=== PATIENT | female | born 1960 | race Caucasian/White ===

== ENCOUNTER 2019-10-19 09:31 | Day surgery (SDC) | payer OTHER ==
[2019-10-18 09:34] VITALS: BMI 30.5
[2019-10-19] MEDS ORDERED: SODIUM CHLORIDE 0.9% P/F 10 ML VIAL IJ ONE (10:22)
[2019-10-19] MEDS ORDERED: ceFAZolin SODIUM 1 GM VIAL ONE (10:22)
[2019-10-19] MEDS ORDERED: PROPOFOL 20 ML ONE ×2 (10:22→13:30)
[2019-10-19] MEDS ORDERED: MIDAZOLAM HCL 2 MG/2 ML SINGLE DOSE VIAL ONE (10:22)
[2019-10-19] MEDS ORDERED: DEXAMETHASONE SOD PHOSPHATE 4 MG/1 ML VIAL ONE (10:22)
[2019-10-19] MEDS ORDERED: oxyCODONE HCL 5 MG TABLET PO PRN ×2 (11:16)
[2019-10-19] MEDS ORDERED: ONDANSETRON 4 MG/2 ML VIAL IVPUSH PRN (11:16)
[2019-10-19] MEDS ORDERED: LACTATED RINGERS SOLUTION 1,000 ML IV SCH (11:30)
[2019-10-19] MEDS ORDERED: ceFAZolin SODIUM 1 GM VIAL IVPB ONE (13:32)
[2019-10-19] MEDS ORDERED: IOHEXOL 300 MG/ML INFUS..BTL IJ ONE (13:36)
[2019-10-19 14:20] LABS: PH,URINE 6.5 (5.0-8.0); URINE APPEARANCE CLEAR; URINE BILIRUBIN NEGATIVE (NEGATIVE); URINE COLOR YELLOW; URINE GLUCOSE (UA) NEGATIVE (NEGATIVE); URINE KETONE NEGATIVE (NEGATIVE); URINE LEUK ESTERASE NEGATIVE (NEGATIVE); URINE NITRITE NEGATIVE (NEGATIVE); URINE PROTEIN NEGATIVE (NEGATIVE); URINE UROBILINOGEN 0.2 mg/dL (0.2-1.0)
--- NOTE | 2019-10-19 14:21 | CONS ---
DATE OF CONSULTATION: DATE OF DICTATION: 10/19/2019 HISTORY OF PRESENT ILLNESS: Patient is a 59-year-old female with a history of transitional cell tumors of the bladder. She was last seen in 2018 and lost to followup. She underwent a CAT scan of her abdomen and was found to have right hydroureteronephrosis with no point of obstruction. She denies any diabetes or hypertension. She denies any allergies. The patient is . BUN was 16 and creatinine was 0.8. A urinalysis was positive for blood. PLAN: Therefore, the patient will be admitted for cystoscopy, right retrograde pyelogram, right ureteroscopy and placement of a right JJ stent. This was explained to patient and she agrees. Hali [id number]
[2019-10-19 16:51] VITALS: BP 129/60; PULSE 60; TEMP 97.3
--- NOTE | 2019-10-19 23:39 | OP ---
DATE OF OPERATION: 10/19/2019 PREOPERATIVE DIAGNOSIS: History of bladder tumor, right renal colic, right hydronephrosis, hematuria. POSTOPERATIVE DIAGNOSIS: Right ureteral stricture, no tumors seen. OPERATIVE PROCEDURE: Cystourethroscopy, collection of urine for culture and sensitivity and cytology, right retrograde pyelogram, right ureteral dilation and placement of a right JJ stent. ANESTHESIA: General. DESCRIPTION OF PROCEDURE: Under above stated anesthesia, patient was prepped and draped in the usual sterile manner. She was placed in the dorsal lithotomy position. Meatus appeared to be dry, therefore this was dilated with sounds to 28 Israeli without difficulty or bleeding. Bladder was entered. Urine was collected for cytology and culture and sensitivity. The bladder revealed generalized grade 2 trabeculation. No lesions were noted. No calculi were seen. There was squamous metaplasia of the trigone. Ureteral orifice revealed clear efflux of urine. A Flexi-Tip catheter was placed into the right ureteral orifice and 10 mL of contrast was injected. This revealed a hydronephrotic kidney with a thinning of the mid ureter indicative of a stricture . Delayed films revealed delayed drainage of the proximal renal unit. A glidewire was passed up the right renal unit. The cystoscope was removed. The ureteroscope was inserted. Ureteroscopy revealed a stricture in the mid portion of the ureter. A ureteral balloon was inserted, and this was dilated to 12 Israeli, and was kept in for 15 minutes. Afterwards the lumen appeared to be larger. Therefore, a 22-cm, 6-Israeli JJ stent was placed. X-rays confirmed good position of the stents. The patient tolerated the procedure. She returned to the recovery room in good condition. Hali [id number]
--- NOTE | 2019-10-22 16:57 | PATH ---
Cytology Non-Gynecological Report Patient Name: BETTY GONZALES [facility]. Rec. #: [id number] /Age/Gender: 1960 (Age: 59) / F Account: [id number] Location: [facility] Taken: 10/19/2019 Received: 10/19/2019 Reported: 10/22/2019 Physicians: Eileen Otto M.D. Specimen(s) Received URINE VOIDED Clinical History Urine for cytology Final Diagnosis URINE FOR CYTOLOGY: SATISFACTORY FOR EVALUATION. NEGATIVE FOR HIGH GRADE UROTHELIAL CARCINOMA. SCATTERED UROTHELIAL CELLS AND SQUAMOUS EPITHELIAL CELLS PRESENT Electronically Signed Babar Brown M.D. Gross Description Approximately 30cc of yellow fluid received fresh. One cytospin prepared
== END 2019-10-19 16:20 | disposition home or self-care (01) ==
LOC: JASU-SURG 09:31
PROVIDERS: ATTEND Urology
PROC: 0T9680Z Drainage of Right Ureter with Drainage Device, Via Natural or Artificial Opening Endoscopic (ICD-10-PCS; 2019-10-19)
PROC: 0T768DZ Dilation of Right Ureter with Intraluminal Device, Via Natural or Artificial Opening Endoscopic (ICD-10-PCS; principal; 2019-10-19 11:30)
DX: N13.1 Hydronephrosis with ureteral stricture, not elsewhere classified (principal)
CPT/HCPCS: 76000-TC-FY; 81003; 88108; 94760

== ENCOUNTER 2020-04-29 08:39 | Emergency (ER) | payer OTHER ==
[2020-04-29 08:58] VITALS: TEMP 98.1; BMI 29.1
[2020-04-29] MEDS ORDERED: ACETAMINOPHEN 1000 MG/100 ML VIAL (NON FORMULARY) IVPB ONE (09:50)
[2020-04-29] MEDS ORDERED: ACETAMINOPHEN 500 MG TABLET (FP) PO ONE (10:10)
[2020-04-29] MEDS ORDERED: ACETAMINOPHEN 325 MG TABLET (FP) ONE (10:14)
[2020-04-29 10:34] LABS: BASO % 0.8 % (0-2.0); EOS % 3.6 % (0-4.5); HEMATOCRIT 39.7 % (32.4-45.2); HEMOGLOBIN 13.4 GM/dL (10.7-15.3); LYMPH % 27.8 % (8-40); MCH 30.3 pg (25.7-33.7); MCHC 33.7 g/dl (32.0-36.0); MEAN CELL VOLUME 89.9 fl (80-96); MEAN PLT VOLUME 9.4 fl (7.5-11.1); MONO % 8.4 % (3.8-10.2); NEUT % 59.4 % (42.8-82.8); PLATELET COUNT 216 K/MM3 (134-434); RBC 4.41 M/mm3 (3.60-5.2); RDW 13.5 % (11.6-15.6); WHITE BLOOD COUNT 5.5 K/mm3 (4.0-10.0)
[2020-04-29 10:58] LABS: POTASSIUM 4.1 mmol/L (3.5-5.1)
[2020-04-29 11:00] LABS: CALCIUM 9.3 mg/dL (8.5-10.1)
[2020-04-29 11:01] LABS: ALBUMIN 3.8 g/dl (3.4-5.0); BLOOD UREA NITROGEN 12.6 mg/dL (7-18)
[2020-04-29 11:04] LABS: CREATININE 0.6 mg/dL (0.55-1.3)
[2020-04-29 11:05] LABS: BILIRUBIN,TOTAL 0.3 mg/dL (0.2-1); TOT PROT 7.3 g/dl (6.4-8.2)
[2020-04-29 12:52] LABS: EPI CELLS 6 /uL (0-25.1); HYALINE CASTS 0 /uL (0-3.1); PH,URINE 6.5 (5.0-8.0); URINE APPEARANCE CLEAR; URINE BACTERIA 512 /uL (0-1359); URINE BILIRUBIN NEGATIVE (NEGATIVE); URINE COLOR YELLOW; URINE GLUCOSE (UA) NEGATIVE (NEGATIVE); URINE KETONE NEGATIVE (NEGATIVE); URINE LEUK ESTERASE 1+ (NEGATIVE); URINE NITRITE NEGATIVE (NEGATIVE); URINE PROTEIN NEGATIVE (NEGATIVE); URINE RBC 4 /uL (0-23.9); URINE UROBILINOGEN 0.2 mg/dL (0.2-1.0); URINE WBC 17 /uL (0-25.8)
[2020-04-29] MEDS ORDERED: morphine CARPU-JECT 2 MG/1 ML DISP.SYRIN SQ ONE (13:38)
[2020-04-29] MEDS ORDERED: MORPHINE SULFATE 2 MG/ML VIAL ONE (14:10)
[2020-04-29 16:37] VITALS: BP 152/78; PULSE 78
== END 2020-04-29 16:34 | disposition home or self-care (01) ==
LOC: JER 08:39
DX: N39.0 Urinary tract infection, site not specified (principal)
CPT/HCPCS: 36415; 74176-TC; 76830-TC; 76856-TC; 80053; 81003; 83690; 85025; 87086; 99285-25